=== PATIENT | female | born 1955 | race Caucasian/White ===

== ENCOUNTER → 2016-08-10 | Outpatient (CLI) | payer BC ==
[~2016-08-10] MED LIST: ACET-1138 PO; ASPEC81 PO; CALC-388 PO; CLB200 PO; LEVO100T PO; MULT-190 PO; RXC5 PO; SNK PO; TRAM-10 PO
[2016-08-10 18:26] LABS: THYROID STIMULATING HORMONE 2.64 uIu/ml (0.300-4.500)
== END | disposition home or self-care (01) ==
LOC: C.LAB1850 17:14
PROVIDERS: ATTEND Internal Medicine
DX: E03.9 Hypothyroidism, unspecified (principal)

== ENCOUNTER 2023-09-16 08:51 | Observation (INO) ==
--- NOTE | 2023-07-26 11:17 | PAT Medication Instructions ---
Medication Instructions Date of Service July 26, 2023 Home Medications aspirin 325 mg tablet 325 mg PO BID ibuprofen 200 mg capsule 200 mg PO TID PRN acetaminophen 500 mg tablet 500 mg PO Q6H PRN levothyroxine 125 mcg tablet 125 mcg PO QAM turmeric root extract 500 mg capsule 1,500 mg PO QAM ASK your surgeon for instructions ibuprofen 200 mg capsule 200 mg PO TID PRN ASK your prescriber and surgeon aspirin 325 mg tablet 325 mg PO BID STOP taking 2 weeks before surgery (or as soon as possible if surgery is within 2 weeks) turmeric root extract 500 mg capsule 1,500 mg PO QAM Take morning of surgery With a small sip of water, OTHERWISE NOTHING TO EAT OR DRINK AFTER MIDNIGHT: acetaminophen 500 mg tablet 500 mg PO Q6H PRN(if needed) levothyroxine 125 mcg tablet 125 mcg PO QAM Take evening before surgery acetaminophen 500 mg tablet 500 mg PO Q6H PRN(if needed) Other Notes If you have any questions please call us at [phone] or [phone] or [phone] or [phone]
--- NOTE | 2023-07-27 13:53 | Anesthesiology Consultation ---
Date of Service July 27, 2023 Assessment & Plan (1) Encounter for pre-operative examination: - [place] PCP pre-operative evaluation 08/30/23. Patient states she is going to contact [place] PCP to confirm pre-op evaluation as it is scheduled as wellness appointment, she states they were awaiting confirmation surgery could go ahead after completion of MRI ordered by Dr. Phillips. - [facility] 07/19/23: "...right wrist pain after she fell while playing pickle ball...denies head strike, she denies precipitating events, she reports no loss of consciousness...denies use of anticoagulants...Upon assessment, the patient has an obviously deformed right wrist...right wrist dominant. Pulses are present, radial, ulnar, and medial nerve intact. Xray imaging was obtained to determine severity of injury. Xray imaging per my initial interpretation shows an acute comminuted distal radius fracture with angulation...patients wrist was reduced using traction with dorsiflexion. The wrist was splinted in volar position with Orthoglass. Neurovascular exam post splint is negative for nerve injury, pulses intact, capillary refill +1. The patient was placed in an arm sling for comfort. We discussed follow-up care with orthopedics..." - Outpatient joint pathway: Per surgeon and patient, plan for outpatient joint program. Upon review of chart-patient is an acceptable candidate for Same Day Joint Program from anesthesia perspective PCP clearance and pending perioperative course. Pending patient is motivated, has good support and surgeon's office completes Same Day Joint Program preop requirements- patient may proceed with outpatient TKA. Chart Review Chart Review: Pending: Refer to Additional Notes / Consult section and Patient seen in Pre Admission Testing Teaching & Discussion Pre-Anesthesia Teaching/Discussion Notes: Instructed NPO after midnight before surgery, except medications with 15 cc of water. Medication instructions provided according to the PAT guidelines. History Surgery Operation Date: 09/16/23 10:15 Proposed Procedures p OP: Right Total Knee Replacement - Miguelangel Phillips MD Height/Weight Height: 5 ft 4 in Weight: 62.3 kg Allergies Allergy/AdvReac Type Severity Reaction Status Date / Time No Known Allergies Allergy Verified 07/26/23 10:28 Medications Home Medications Medication Instructions Recorded Confirmed Last Taken aspirin 325 mg tablet 325 mg PO BID 08/25/21 07/26/23 04/05/23 ibuprofen 200 mg capsule 200 mg PO TID PRN Pain 08/31/22 07/26/23 04/05/23 acetaminophen 500 mg tablet 500 mg PO Q6H PRN Pain 04/05/23 07/26/23 04/05/23 levothyroxine 125 mcg tablet 125 mcg PO QAM 07/26/23 07/26/23 Unknown turmeric root extract 500 mg 1,500 mg PO QAM 07/26/23 07/26/23 Unknown capsule Past Medical History Medical History (Updated 07/27/23 @ 13:58 by Luisa Allan PA-C) Distal radial fracture (07/19/23) fell while playing pickle ball s/p surgery Hx of varicose veins of lower extremity lt leg>"reason for aspirin for years" Hypothyroidism Patient denies h/o stroke, seizures, heart attack, heart failure, DM, HTN, blood clots/DVTs or blood transfusions. Exercise / Class Metabolic Activity II 4-5 Yardwork/Stairs/Walk up hill (denies chest discomfort or shortness of breath with 1 FOS) Past Family History Family History Aunt Colorectal cancer Sister Diabetes Grandmother (Maternal) Diabetes Denies family history of Ovarian cancer Prostate cancer Myocardial infarction Breast cancer Past Surgical History Surgical History H/O arthroscopy of right knee H/O colonoscopy History of open reduction and internal fixation (ORIF) procedure 07/21/23, rt. wrist>hardware intact Hx of varicose vein ligation lt leg S/P section S/P dilatation and curettage Status post laser ablation of incompetent vein lt leg Status post total hip replacement, left Past Anesthesia History No Hx of Anesthesia Complications and No Family Hx of Anesthesia Complications History of PONV No Hx of PONV and No Hx of Motion Sickness Social History Smoking Status: Former smoker Do You Dip or Chew Tobacco: No Smoking End Date: 1986 Hx Alcohol Use: Yes Alcohol type: other alcohol intake frequency: other Alcohol Intake Frequency Comment: very rare Hx Substance Use: No substance use type: does not use Review of Systems Patient denies chest pain, shortness of breath, dyspnea on exertion, snoring, witnessed apneas, reflux, fever, chills, cough, wheezing, or palpitations. Physical Exam Vital Signs Vitals BP 108/70 P 71 TEMP 97.4 SP02 98% on RA RESP 18 Physical Patient resting comfortably in chair in no acute distress, alert and oriented, responding appropriately throughout visit Full cervical extension range of motion without pain TMD 3.5 finger breadths Mallampati Score 2 Dentition: intact, denies chipped or loose teeth, caps/crowns, implants or bridges Lungs: normal respiratory effort. Good air movement, clear throughout to auscultation, no adventitious breath sounds Cardiac: regular rate and rhythm, no murmurs noted Carotid arteries: negative bruit bilat Lab Results Anesthesia Preop Results Results Anesthesia Widget: WBC 8.48 K/ul (4.8-10.8) 07/27/23 Hgb 14.0 g/dl (12.0-16.0) 07/27/23 Hct 42.3 % (37.0-47.0) 07/27/23 Plt 289 K/uL (130-400) 07/27/23 Na 139 mmol/L (136-145) 07/27/23 K 4.3 mmol/L (3.5-5.1) 07/27/23 Cl 103 mmol/L (98-107) 07/27/23 CO2 28 mmol/L (21-32) 07/27/23 BUN 15 mg/dl (6-23) 07/27/23 Creat 0.84 mg/dl (0.6-1.2) 07/27/23 Glucose Level 90 mg/dl (70-99(Fasting)) 07/27/23 PT 10.8 Seconds (9.0-12.0) 07/27/23 PTT 27 Seconds (21-31) 07/27/23 INR 1.0 (0.9-1.1) 07/27/23 Urine Color Yellow 07/27/23 Urine Appearance Clear (Clear) 07/27/23 Urine pH 6.5 (4.5-7.5) 07/27/23 Urine Specific Daniels 1.005 (1.000-1.030) 07/27/23 Urine Protein Negative (Negative) 07/27/23 Urine Glucose (UA) Negative (Negative) 07/27/23 Urine Ketones Negative (Negative) 07/27/23 Urine Blood Negative (Negative) 07/27/23 Urine Nitrite Negative (Negative) 07/27/23 Urine Bilirubin Negative (Negative) 07/27/23 Urine Urobilinogen Negative (Negative) 07/27/23 Urine Leukocyte Esterase Negative (Negative) 07/27/23 Blood Type O Negative 07/27/23 Antibody Screen NEGATIVE 07/27/23 Testing Electrocardiogram Date: 07/27/23 NSR, rate 61 bpm Incomplete RBBB Chest X-Ray Date: 07/27/23 1. No acute process within the chest. 2. Cholelithiasis. Other Testing Abdomen pelvis CT 04/08/23 1. Cholelithiasis is seen with questionable prominence of the gallbladder wall. Clinical correlation for cholecystitis is recommended. 2. Diverticulosis without evidence of diverticulitis. 3. Hepatic hypodensity is seen measuring greater than simple fluid density. This is statistically likely to be benign, however hepatic protocol MRI can be performed if further characterization is desired
--- NOTE | 2023-09-10 11:06 | History & Physical Report ---
Date of Service September 10, 2023 Assessment & Plan (1) Tricompartment degenerative joint disease of knee: Plan: Right total knee replacement with patient-specific implants probable same-day surgery with home health by [facility] History of Present Illness Chief Complaint: Right knee pain Primary Care Provider: Darwin Vance MD Patient is a relatively healthy and active 67-year-old female who presents with a 2-year history of increasing right knee pain. She has a remote history of trauma and has undergone arthroscopic debridement approximately 10 years ago. At that point she was found to have an ACL deficient knee chronic meniscal tears and severe degenerative changes. She now presents with significant pain on a daily basis associated with decreased range of motion and giving way. She has limited standing and walking tolerance and has failed both bracing and injections. She is admitted for elective knee replacement surgery. Allergies Allergy/AdvReac Type Severity Reaction Status Date / Time No Known Allergies Allergy Verified 08/20/23 13:18 Home Medications Medication Instructions Recorded Confirmed Type aspirin 325 mg tablet 325 mg PO BID 08/25/21 08/20/23 History ibuprofen 200 mg capsule 200 mg PO TID PRN Pain 08/31/22 08/20/23 History acetaminophen 500 mg tablet 500 mg PO Q6H PRN Pain 04/05/23 08/20/23 History levothyroxine 125 mcg tablet 125 mcg PO QAM 07/26/23 08/20/23 History turmeric root extract 500 mg 1,500 mg PO QAM 07/26/23 08/20/23 History capsule Past Med/Surg History Medical History Distal radial fracture (07/19/23) fell while playing pickle ball s/p surgery Hx of varicose veins of lower extremity lt leg>"reason for aspirin for years" Hypothyroidism Surgical History History of open reduction and internal fixation (ORIF) procedure 07/21/23, rt. wrist>hardware intact Status post laser ablation of incompetent vein lt leg Hx of varicose vein ligation lt leg H/O colonoscopy Status post total hip replacement, left H/O arthroscopy of right knee S/P section S/P dilatation and curettage Family History Aunt Colorectal cancer Sister Diabetes Grandmother (Maternal) Diabetes Denies family history of Ovarian cancer Prostate cancer Myocardial infarction Breast cancer Social History Smoking Status: Former smoker Tobacco Type: Cigarettes Second Hand Exposure: Yes (hx as child); Do You Dip or Chew Tobacco: No; Hx Alcohol Use: Yes Alcohol type: other Hx Substance Use: No Preferred Language: [place] Islander Communication Ability: Effective Financial Data Analyst Required: No Beliefs That Will Affect Care: None marital status: Current Living Situation: Spouse current occupational status: retired Feels Safe at Home: Yes Childhood Exposure to Second-Hand Smoke: Yes Dental Care, Regularly: Yes Physical Activity Frequency: 5-6 Times per Week Seatbelt Use: always Sunscreen Use: Yes Assistive Devices: Glasses Review of Systems Review of Systems: Knee pain Physical Exam Physical Exam: Weight 63 kg BMI 24 General: Healthy appearing woman who appears to be her stated age. HEENT: NCAT, EOMI, PERRLA Neck: Negative JVD or bruits Heart: Regular rate and rhythm no murmurs or gallops Lungs: Breath sounds clear and present in all haddad Abdomen: Flat soft nontender bowel sounds are positive Extremities: Right knee shows varus deformity passive range of motion is 0 to 115 degrees with 4 mm of medial laxity positive effusion and pain Neurological and vascular: Intact Results & Data Results & Data Vital Signs (Past 12 Hours) Blood pressure 110/64 Pulse 70
[~2023-09-16 08:51] MED LIST changes: -ACET-1138 PO; -ASPEC81 PO; -CALC-388 PO; -CLB200 PO; -LEVO100T PO; +MEPIVACAINE HCL 1.5% 30 ML VIAL ONE; -MULT-190 PO; +ROPIVACAINE 0.5% 5 MG/ML 30 ML VIAL ONE; -RXC5 PO; -SNK PO; -TRAM-10 PO
--- NOTE | 2023-09-16 09:20 | History & Physical Bridge Note ---
Date of Service September 16, 2023 History & Physical Bridge Note I have examined the patient, reviewed the History & Physical and in the interval since the performance of the History & Physical I have noted the following changes of clinical significance: no changes noted
[2023-09-16] MEDS: LR 60ML/HR IV SCH (09:50)
[2023-09-16] MEDS: LR 500ML BOLUS, THEN 15ML/HR IV SCH (09:50)
[2023-09-16] MEDS: CeleBREX 200 MG CAP PO SCH ×2 (09:57→20:31)
[2023-09-16] MEDS: dexAMETHasone**PF** 10 MG/ML VIAL IV SCH (09:57)
[2023-09-16] MEDS: ACETAMINOPHEN 500 MG TAB PO SCH ×2 (09:57→22:02)
[2023-09-16] MEDS: traMADol HCL 50 MG TABLET PO SCH (09:57)
[2023-09-16] MEDS: METOCLOPRAMIDE HCL 10 MG TABLET PO SCH (09:58)
[2023-09-16] MEDS: FAMOTIDINE 20 MG TAB PO SCH (09:58)
[2023-09-16] MEDS: GABAPENTIN 300 MG CAP PO SCH (09:59)
[2023-09-16] MEDS ORDERED: MIDAZOLAM HCL 1 MG/ML 2ML VIAL ONE ×2 (10:08)
[2023-09-16] MEDS ORDERED: KETOROLAC 30 MG/ML VIAL ONE (10:16)
[2023-09-16] MEDS ORDERED: LIDOCAINE 2% 2 ML VIAL/AMP(20MG/ML) INFIL ONE (10:16)
[2023-09-16] MEDS ORDERED: PROPOFOL IV EMULSION 10 MG/ML 20 ML VIAL IV ONE (10:16)
[2023-09-16] MEDS ORDERED: ONDANSETRON INJ 2 MG/ML 2 ML VIAL ONE (10:16)
[2023-09-16] MEDS ORDERED: ATROPINE SULFATE 0.1 MG/ML 10ML SYR IV PRN (10:21)
[2023-09-16] MEDS ORDERED: ONDANSETRON INJ 2 MG/ML 2 ML VIAL IV PRN ×2 (10:21→16:51)
[2023-09-16] MEDS ORDERED: ePHEDrine sulfate 50 MG/ML AMP IV PRN (10:21)
[2023-09-16] MEDS ORDERED: PROMETHAZINE HCL 6.25 MG in SODIUM CHLORIDE 0.9% 50 ML IV PRN (10:21)
[2023-09-16] MEDS ORDERED: HYDROmorphone INJ 2 MG/ML SYR/VIAL IV PRN (10:21)
[2023-09-16] MEDS ORDERED: fentaNYL citrate PF 100 MCG/2 ML VIAL IV PRN (10:21)
[2023-09-16] MEDS: TRANEXAMIC ACID 1,000 MG **IV Pre-op IV SCH (10:43)
[2023-09-16] MEDS: ceFAZolin 2000MG 2,000 MG/15 ML SYR IV SCH ×2 (11:08→22:02)
[2023-09-16] MEDS: ORTHO JOINT ANESTHETIC ONE (11:50)
[2023-09-16] MEDS ORDERED: ePHEDrine sulfate 50 MG/5 ML SYR ONE (11:59)
[2023-09-16] MEDS: TRANEXAMIC ACID 1,000 MG **IV Intra-op IV SCH (12:03)
[2023-09-16] MEDS: ROPIV 0.5% 246mg, Ketorolac 30mg, EPINEPHrine 0.5mg in NSS INFIL SCH (12:04)
--- NOTE | 2023-09-16 12:09 | Post Operative Brief Note ---
Immediate Post Op Note v1 Date of Surgery September 16, 2023 Pre & Post Diagnosis Operation Date: 09/16/23 10:15 <No data on this case meets the specified criteria> I identified the patient and participated in the time-out.: Yes Procedure Operation Date: 09/16/23 10:15 <No data on this case meets the specified criteria> Surgeon Miguelangel Phillips MD Metal Furrer Ted Perez PA-C Estimated Blood Loss 100 Findings Consistent with Post-Op Diagnosis
[2023-09-16] MEDS ORDERED: ACETAMINOPHEN 500 MG TAB PO PRN (12:10)
[2023-09-16] MEDS: traMADol HCL 50 MG TABLET PO PRN (13:45)
--- NOTE | 2023-09-16 13:58 | Operative Report ---
Post Operative Report Pre & Post Diagnosis Operation Date: 09/16/23 10:15 Pre-Op Diagnosis: Tricompartment degenerative joint disease of right knee Post-Op Diagnosis: Tricompartment degenerative joint disease of right knee I identified the patient and participated in the time-out.: Yes Procedure Operation Date: 09/16/23 10:15 Actual Procedures p Right Total Knee Replacement(Right) - Miguelangel Phillips MD Surgeon Miguelangel Phillips MD Geology Instructor Ted Perez PA-C Estimated Blood Loss 100 Findings Consistent with Post-Op Diagnosis Severe tricompartmental degenerative changes severe disease and chronic absen ce of the anterior cruciate ligament. Specimens Bone and cartilage fragments Complications none Indications components used: [employer] journey 2 posterior stabilized knee system: Femur size 5 with Oxinium coating, tibia size 4 x 15, patella size 35 oval. Description of Procedure Following satisfactory spinal anesthesia the patient was supine on the operating room table. The right lower extremity was prepared with ChloraPrep and draped sterilely. A surgical timeout was performed. A midline incision was made with a median parapatellar arthrotomy. The knee showed severe changes as noted above. The anterior cruciate ligament was absent. Attention was first turned to the patella. The patella was freehand cut and sized for a 35 button. This relaxed the extensor mechanism and enhanced exposure to the lateral side of the knee. The patient matched femoral block was applied. Femoral distal rotation and resection were setting completed. The the remainder of the posterior cruciate ligament was excised. The Size five 4-in-1 block was then applied and femoral preparation was completed. The tibial meniscal fragments were excised. The patient matched tibial block was applied. Tibial resection was completed. Soft tissue balancing was then completed in flexion and extension. Because of chronic absence of the anterior cruciate chronic instability the flexion space was a little larger than normal and required a 15 insert but this did tighten things up nicely. A trial reduction with the above-mentioned components was performed. This showed good tensioning and stability on the collateral ligaments from full extension to flexion to more than 120 degrees and the patella tracked well. The trial components were removed. The capsule was prepared with the orthopedic cocktail. After irrigation and drying the components were cemented using T. Janak Z be cement cementing the tibia first, femur second, and patella third. When the cemented hardened the knee was checked and showed similar stability and tracking. Wound was irrigated with 500 cc of experience irrigation. A Hemovac drain was placed. The capsulotomy was closed with interrupted [id number] sutures of 1 Vicryl and a running suture of 10 strata fix. Following irrigation the subcutaneous tissues were closed with 0 strata fix deep and 3 oh strata fix superficial. Dermabond Steri-Strips and a negative pressure wound dressing were applied followed by compressive bandage. Patient was returned to her bed in stable condition. Note: Ted NIX was present and assisted throughout due to the complicated nature of this case. He help with preparation and set up, he perinatal breastfeeding assistant throughout. He assisted with hemostasis and exposure throughout the procedure. He also closed the capsule subcutaneous and skin layers and applied the postop dressing. I attest to the content of the Intraoperative Record and any orders documented therein. Any exceptions are noted below.
--- NOTE | 2023-09-16 14:21 | Anesthesiology Progress Note ---
Date of Service September 16, 2023 Anesthesia Post Procedure Vital Signs Vital Signs: Temp Pulse Pulse Resp BP Pulse Ox O2 Del Method 09/16/23 13:45 36.6 C 85 18 130/69 94 Room Air 09/16/23 13:15 36.5 C 74 16 119/60 94 Room Air 09/16/23 13:00 36.3 C L 75 19 112/64 97 Room Air 09/16/23 12:50 82 20 113/62 100 Oxymask 09/16/23 12:44 36.5 C 82 20 105/59 L 100 Oxymask 09/16/23 09:19 36.6 C 68 20 148/87 H 98 Room Air O2 Flow Rate 09/16/23 13:45 09/16/23 13:15 09/16/23 13:00 09/16/23 12:50 8 09/16/23 12:44 8 09/16/23 09:19 Pain Intensity Left Knee: Pain Intensity: 2 Transfer of Care Handoff Completed per policy Notes Mental Status: alert / awake / arousable and participated in evaluation Nausea / Vomiting: adequately controlled Pain: adequately controlled Airway Patency, RR, SpO2: stable & adequate BP & HR: stable & adequate Hydration State: stable & adequate Neuraxial Anesthesia: was administered and sensory block is resolving Anesthetic Complications: no major complications apparent and Pt Satisfied with anesthetic care
[2023-09-16] MEDS: ceFAZolin 2000MG 2,000 MG/15 ML SYR IV ONE (15:08)
[2023-09-16] MEDS ORDERED: bisacodyL 10 MG SUPP PR PRN (16:51)
[2023-09-16] MEDS ORDERED: NALOXONE HCL 0.4 MG/1 ML VIAL/CARP IV PRN (16:51)
[2023-09-16] MEDS ORDERED: MAGNESIUM HYDROXIDE SUSP 30 ML UDC PO PRN (16:51)
[2023-09-16] MEDS ORDERED: HYDROmorphone INJ 0.5 MG/0.5 ML SYR IV PRN (16:51)
--- NOTE | 2023-09-16 16:52 | Communication Note ---
Date of Service: September 16, 2023 The patient failed PT/OT 2/2 R quad weakness. The patient was able to ambulate to the bathroom, but she states having decreased strength in the RLE. The pat ient had a R adductor canal block that likely resulted in a R femoral nerve block. The patient will be admitted. The patient is otherwise stable without any complaints.
--- NOTE | 2023-09-16 17:14 | XRay Report ---
XR knee RT 1 or 2V routine CLINICAL HISTORY: Surgical Post Op COMPARISON: Right knee radiograph April 05, 2023. FINDINGS: Alignment of the total right knee arthroplasty is anatomic. No periprosthetic fracture or unexpected radiopaque foreign body. There are surgical drains. IMPRESSION: Expected findings following total right knee arthroplasty. ACT 112: Negative or not required by law. Electronically signed by: Taz Decker M.D. 09/16/2023 5:13 PM
[2023-09-16] MEDS: SODIUM CHLORIDE 0.9% 1,000 ML IV SCH (17:17)
[2023-09-16] MEDS: SENNA 8.6 MG TAB PO SCH (20:31)
[2023-09-16] MEDS: DOCUSATE SODIUM 100 MG CAP PO SCH (20:31)
[2023-09-16] MEDS: ASPIRIN 325 MG ECTAB PO SCH (20:31)
[2023-09-17] MEDS: traMADol HCL 50 MG TABLET PO PRN (01:59)
[2023-09-17] MEDS: LEVOTHYROXINE SODIUM 125 MCG TABLET PO SCH (05:39)
--- NOTE | 2023-09-17 06:23 | Orthopedic Progress Note ---
Date of Service September 17, 2023 Assessment & Plan (1) Tricompartment degenerative joint disease of knee: Plan: Postop day 1 status post right total knee arthroplasty. PT/OT protocols. Weightbearing as tolerated with immobilizer if needed. Patient to take immobilizer home with her until weakness in her right lower extremity is resolved and to continue to use the immobilizer as needed. DVT prophylaxis-aspirin p.o. twice daily, SCDs Pain management as written. DC planning-patient is planning for home health services upon discharge. Plan for discharge to home today after PT Admission and Anticipated Discharge Date Admission Date: September 16, 2023 Subjective Postop day 1 Patient was up in the bathroom with help from nursing. Patient ambulating back to bed without difficulty. Patient states that she is starting to get some of her muscle function back compared to yesterday. She states she is able to do quad sets and is now able to do good dorsiflexion and plantarflexion of her right foot. She is still unable to do a straight leg raise on her own at this time but is starting to get close. No other complaints at this time. Pain is controlled. She is open to go home today Physical Exam Physical Exam: Dressings are clean, dry, and intact. Calves are soft nontender. Patient is firing her quads quite well. She does have good dorsiflexion and plantarflexion strength. She continues to have numbness across the dorsum of the foot. Some of the numbness also is below the knee. She is able to do a heel slide however she is unable to do a full straight leg raise on her own at this time. She is ambulating well with her immobilizer. Hemovac drainage was 155 cc from the previous shift. Results & Data Vital Signs (Past 12 Hours) Vital Signs Temp Pulse Resp BP Pulse Ox O2 Del Method 09/17/23 02:49 36.8 C 63 18 110/66 96 Room Air 09/16/23 22:57 36.5 C 61 18 109/65 97 Room Air 09/16/23 19:31 36.8 C 70 18 119/73 95 Room Air
[2023-09-17 06:59] LABS: Hematocrit (blood only) 35.9 % (37.0-47.0); Mean Corpuscular Hemoglobin 31.3 pg (25.0-34.0); Mean Corpuscular Hgb Conc 33.4 g/dL (32.0-36.0); Mean Corpuscular Volume 93.7 fL (80.0-100.0); Mean Platelet Volume 10.1 fL (9.4-12.4); Platelet Count 208 K/uL (130-400); RDW Coefficient of Variation 12.3 % (11.5-14.5); RDW Standard Deviation 42.5 fL (36.4-46.3); Red Blood Count 3.83 M/uL (4.20-5.40); White Blood Count 15.93 K/ul (4.8-10.8)
[2023-09-17 07:21] LABS: BUN Creatinine Ratio 20.7 (10-20); Calcium 9.2 mg/dl (8.6-10.3); Creatinine Clr Calc Pharmacy 55.9 ml/min; Est GFR (African American) 84.6 ml/min; Potassium 4.5 mmol/L (3.5-5.1)
[2023-09-17] MEDS: MULTIVITAMIN TAB PO SCH (08:10)
--- NOTE | 2023-09-21 15:13 | Discharge Summary ---
Date of Service September 21, 2023 Admission HPI Per Admitting Provider Patient is a relatively healthy and active 67-year-old female who presents with a 2-year history of increasing right knee pain. She has a remote history of trauma and has undergone arthroscopic debridement approximately 10 years ago. At that point she was found to have an ACL deficient knee chronic meniscal tears and severe degenerative changes. She now presents with significant pain on a daily basis associated with decreased range of motion and giving way. She has limited standing and walking tolerance and has failed both bracing and injections. She is admitted for elective knee replacement surgery. Admission Exam Per Admitting Provider Physical Exam: Weight 63 kg BMI 24 General: Healthy appearing woman who appears to be her stated age. HEENT: NCAT, EOMI, PERRLA Neck: Negative JVD or bruits Heart: Regular rate and rhythm no murmurs or gallops Lungs: Breath sounds clear and present in all haddad Abdomen: Flat soft nontender bowel sounds are positive Extremities: Right knee shows varus deformity passive range of motion is 0 to 115 degrees with 4 mm of medial laxity positive effusion and pain Neurological and vascular: Intact Principal Diagnosis Right Knee Osteoarthritis Discharge Data Allergies Allergy/AdvReac Type Severity Reaction Status Date / Time No Known Allergies Allergy Verified 09/16/23 09:16 Procedures Performed Operation Date: 09/16/23 10:15 Actual Procedures p Right Total Knee Replacement(Right) - Miguelangel Phillips MD Ordered Studies 09/16/23 05:00 US - OR guided needle placemen Routine Hospital Course (1) Tricompartment degenerative joint disease of knee: Patient: DEBO SINGER Admit Date: 09/16/23 MR#: [id number] Att Phy: Miguelangel Phillips MD Acct ID: [id number] [facility] Phy: Darwin Vance MD Date: 1955 Fam Phy: Age: 67 Location: 3E Sex: F Room/Bed: Banner cc: ~ *NOTICE TO RECEIVING LIBERTARIAN/AGENCY This information is strictly Confidential and protected under [place] law. [place] law prohibits you from making any further disclosure of this information unless further disclosure is expressly permitted by the written consent of the person to whom it pertains or is authorized by law. A general authorization for the release of medical or other information is not sufficient for this purpose. Hospital accepts no responsibility if the information is made available to any other person, INCLUDING THE PATIENT. Date of Service September 17, 2023 Assessment & Plan (1) Tricompartment degenerative joint disease of knee: Plan: Postop day 1 status post right total knee arthroplasty. PT/OT protocols. Weightbearing as tolerated with immobilizer if needed. Patient to take immobilizer home with her until weakness in her right lower extremity is resolved and to continue to use the immobilizer as needed. DVT prophylaxis-aspirin p.o. twice daily, SCDs Pain management as written. DC planning-patient is planning for home health services upon discharge. Plan for discharge to home today after PT Admission and Anticipated Discharge Date Admission Date: September 16, 2023 Subjective Postop day 1 Patient was up in the bathroom with help from nursing. Patient ambulating back to bed without difficulty. Patient states that she is starting to get some of her muscle function back compared to yesterday. She states she is able to do quad sets and is now able to do good dorsiflexion and plantarflexion of her right foot. She is still unable to do a straight leg raise on her own at this time but is starting to get close. No other complaints at this time. Pain is controlled. She is open to go home today Physical Exam Physical Exam: Dressings are clean, dry, and intact. Calves are soft nontender. Patient is firing her quads quite well. She does have good dorsiflexion and plantarflexion strength. She continues to have numbness across the dorsum of the foot. Some of the numbness also is below the knee. She is able to do a heel slide however she is unable to do a full straight leg raise on her own at this time. She is ambulating well with her immobilizer. Hemovac drainage was 155 cc from the previous shift. Results & Data Vital Signs (Past 12 Hours) Vital Signs Temp Pulse Resp BP Pulse Ox O2 Del Method 09/17/23 02:49 36.8 C 63 18 110/66 96 Room Air 09/16/23 22:57 36.5 C 61 18 109/65 97 Room Air 09/16/23 19:31 36.8 C 70 18 119/73 95 Room Air Signed By: <Electronically signed by Miguelangel Phillips MD> 09/17/23 1253 <Electronically signed by Ted Perez PA-C> 09/17/23 0623 Created: 09/17/23 0620 The status of this report is Signed. Draft = Not yet reviewed or approved by Medical Physician. Signed = Reviewed and approved by Medical Physician. Total Time Total Time Spent Total Time Spent (In Minutes): 10 Discharge Plan Discharge Items Patient Disposition: Home - Home Health Services Reason For Visit: Right Knee Osteoarthritis Discharge Diagnosis: RIGHT KNEE OSTEOARTHRITIS Activity: Per Instructions section Weightbearing: Full weightbearing Weightbearing Comment: Use immobilizer for weakness of right lower extremity. Non-emergency contact: Surgeon Call non-emergency contact if: you have any medication questions, your pain is not controlled, your temperature is above 101.5, your wound has increased redness and your wound has increased drainage Follow-up/Referrals: [facility] [Outside] (as per surgeon's office) Darwin Vance MD [Primary Care Provider] - Miguelangel Phillips MD [Surgeon] - (Follow up with Dr. Phillips or his PA in 2 weeks from the day of your surgery for your first post operative visit. ) Diet: Regular Addtl Attending Provider Instructions: DR. WILLOUGHBY POST-OP INSTRUCTIONS FOR TOTAL KNEE ARTHROPLASTY PLEASE REVIEW PRIOR TO SURGERY Day of Surgery You will be admitted and meet the nursing and anesthesia team. Dr. Phillips will see you and sign your operative side. Anesthesia will place your spinal anesthetic in the pre-op area Your surgery will be performed and last approximately 1 2 hours. Upon waking, you will notice a dressing and ice pack on your knee. If you purchased the Breg Cold Compression unit, this will be applied to your knee. You will remain in the recovery room for 1 2 hours, then be transferred to your room in the ambulatory surgical area if you are to go home the same day of your surgery or on the orthopedic floor if you will be staying overnight. Most of Dr. Willoughby total knee patients go home the same day as surgery. This depends on how well you feel. Patients generally seem to feel better in their own home environment, and the risk of exposure to bad bugs is much lower. (Your post-operative medications will be sent to your pharmacy approximately 1-2 days prior to your procedure) Day 1 post-op (if you have an overnight stay in the hospital) You will have bloodwork drawn in the morning Physical therapy will evaluate you in the morning. You will start getting out of bed and ambulating with a walker. They will instruct you on knee motion exercises. Use your cold packs or your cold compression unit as instructed. This will decrease swelling and minimize pain. creative services writer will discuss your discharge plan. Discharge will generally be around 11am Day 1 post-op (all patients) You will be taking Aspirin 81mg twice for 4 weeks to decrease the risk of a blood clot. You will most likely have a drain and TE (superficial wound VA C) dressing post-operatively covered by an karuna wrap dressing. (home nurse will remove karuna wrap/drain) This will keep your incision dry as well as aid in early healing. The batteries will wear out and the VAC will lose suction around day 6 7 post-op. At that time, you may turn off the device and disconnect it from your dressing. You may remove your dressing 10 days after surgery if it becomes bothersome and irritating to your skin. If the dressing appears to be saturated, please call our office. Day 2-14 post-op You will have a home nurse visit to assess your status and remove your karuna wrap/drain on post-op day 2. You are permitted to shower immediately with the VAC. Do not soak the dressing let the shower flow on your opposite side, and pat dry the plastic. Once the dressing has been removed, you may shower normally with the incision exposed. Do not rub the area simply let soapy water run over the incision and lightly pat dry. Therapy will begin on post-op day 3. Your therapy prescription will be sent to your home therapy company/therapist You should continue doing your home exercises Week 2 post-op and forward You will have your first post-op appointment 2 weeks after surgery which should have been scheduled for you by our office. This appointment will be to check your incision, progression of therapy and pain control. You will continue to use a cane or a walker until you feel safe enough to stop using it. You will have a 6-week post-op appointment which should have been scheduled for you by our office. X-rays will be taken to evaluate the prosthesis. You will continue to advance range of motion. By 3 to 4 months after surgery, you should have almost full range of motion and may resume most activities. You may have some pain around the knee with certain activities this is completely normal. You will be scheduled for a 1-year post-op appointment to assess your outcome (sooner if Dr. Phillips feels it is necessary). Pain: The immediate post-op period after knee replacement surgery can be painful. You should take your pain medicine as you need it, especially prior to physical therapy and bedtime. Your pain WILL get better, and you may transition to a milder pain medicine (with less side effects, such as Tylenol) as soon as possible. It is common to have pain at night that interferes with sleep this can last for several months. Pain medicines can cause nausea and constipation do not take more than you need. You may be prescribed one or more of the following MEDICATIONS: 1. Celebrex this controls inflammation and makes pain medications more effective it will be taken once or twice a day 2. Tylenol a pain medicine that can help to decrease your pain you should take 1000mg three times a day 3. Tramadol a pain medicine that can be taken every 4-6 hours (instead of Oxycodone) as needed to control your pain 4. Oxycodone a VERY strong pain medicine that can be taken every 4- 6 hours (instead of Tramadol) as needed to control your pain. This medication has the most side effects. 5. Aspirin 81mg blood thinning medication to help minimize the risk of development of blood clots unfortunate side effects of pain medicine include nausea and constipation if you experience these issues or have any questions about your post-op medications, [place] [facility] [place]/advice on how to manage these issues Physical therapy is a VERY important part of knee replacement surgery. The office will arrange for a therapist to come to your home to instruct you on exercises. It is very important to practice on your own (or with the assistance of a family member). While in the hospital, you will be shown a series of home exercises you should perform these exercises 3 4 times daily in addition to physical therapy. After the completion of home therapy (approx. 2 weeks), most therapy exercises can be done on your own. You should get up to walk several times a day. Try not to stand longer than 1 hour at a time to minimize swelling. If you develop swelling, you need to elevate your legs/feet at or above the level of your heart. You may progress from walker to cane to ambulating independently as you feel comfortable. Unless it is an emergency, YOU ARE NOT PERMITTED TO HAVE ANY DENTAL CLEANING/WORK UNTIL 3 MONTHS AFTER SURGERY. You will be required to take an antibiotic prior to any dental cleaning or dental work in order to prevent your joint prothesis from getting infected. This medication is a one time per visit dose to be taken one hour prior to appointment. You may call our office for this prescription or your dentist may be willing to prescribe the medication. Remember to contact [facility] [place] if you develop any signs of infection which include increased swelling, pain, redness, drainage from incision, warmth, fever, chills or severe pain unrelieved by pain medication. If you develop any chest pain or shortness of breath, you should proceed immediately to the closest Emergency Room. It is normal to run a low-grade fever after surgery. If your fever is consistent at 101.0 or higher, you will need to contact the office. Stand-Alone Forms: Anesthesia/Sedation, Adult, [facility], Pain - Opioid Pain Management Medications and DC Order Prescriptions: Continued aspirin 325 mg tablet 325 mg PO BID turmeric root extract 500 mg Capsule 1,500 mg PO QAM Discontinued ibuprofen 200 mg capsule 200 mg PO TID PRN (Reason: Pain) acetaminophen 500 mg Tablet 500 mg PO Q6H PRN (Reason: Pain) No Action levothyroxine 112 mcg tablet 112 mcg PO DAILY Qty: 90 0RF Krames/Other Patient Handouts: DVT Post Op Prevention, Hemovac Drain Tube Dc Admission Data Admit Date/Time: 09/16/23 16:10 Attending Provider: Miguelangel Phillips Admit Provider: Miguelangel Phillips Primary Care Provider: Darwin Vance Other Interventions: Discharge Summary Assessment (RN) Last Done: 09/17/23 08:33
== END 2023-09-17 11:46 | disposition home health service (06) ==
LOC: ASU 08:51 → 3E 08:51